=== PATIENT | female | born 1965 | race Two or more races ===

== ENCOUNTER 2017-06-06 10:02 | Outpatient (CLI) | payer OTHER | END 2017-06-06 10:16 | disposition home or self-care (01) | LOC: MRI 10:02 | DX: M25.561 Pain in right knee (principal); M23.91 Unspecified internal derangement of right knee | CPT/HCPCS: 73721 ==

== ENCOUNTER 2017-06-06 10:46 | Outpatient (CLI) | payer OTHER | END 2017-06-06 16:35 | disposition home or self-care (01) | LOC: SONOGRAMA 10:46 | DX: M79.661 Pain in right lower leg (principal) ==

== ENCOUNTER → 2017-06-06 | Outpatient (CLI) | payer OTHER | END | disposition home or self-care (01) | LOC: LAB 07:58 | DX: E88.89 Other specified metabolic disorders (principal); E55.9 Vitamin D deficiency, unspecified; M85.89 Other specified disorders of bone density and structure, multiple sites; E21.2 Other hyperparathyroidism; M81.8 Other osteoporosis without current pathological fracture; E56.1 Deficiency of vitamin K; E83.39 Other disorders of phosphorus metabolism; E83.42 Hypomagnesemia ==

== ENCOUNTER 2017-09-12 12:38 | Outpatient (CLI) | payer OTHER | END 2017-09-12 12:40 | disposition home or self-care (01) | LOC: LAB 12:38 | DX: N30.00 Acute cystitis without hematuria (principal) ==

== ENCOUNTER 2017-09-12 13:45 | Outpatient (CLI) | payer OTHER | END 2017-09-12 17:00 | disposition home or self-care (01) | LOC: TOM 13:45 | DX: R31.0 Gross hematuria (principal) ==

== ENCOUNTER 2019-10-13 11:12 | Outpatient (CLI) | payer OTHER | END 2019-10-13 11:13 | disposition home or self-care (01) | LOC: RAD 11:12 | PROVIDERS: ATTEND Orthopaedic Surgery | DX: M79.671 Pain in right foot (principal) ==

== ENCOUNTER 2019-10-25 10:57 | Outpatient (CLI) | payer OTHER | END 2019-10-25 11:11 | disposition home or self-care (01) | LOC: NUCLEAR 10:57 | PROVIDERS: ATTEND Orthopaedic Surgery | DX: M81.0 Age-related osteoporosis without current pathological fracture (principal); I87.2 Venous insufficiency (chronic) (peripheral) ==

== ENCOUNTER → 2019-11-08 10:08 | Outpatient (CLI) | payer OTHER | END | disposition home or self-care (01) | LOC: LAB 10:08 | PROVIDERS: ATTEND Orthopaedic Surgery | DX: E21.2 Other hyperparathyroidism (principal); E88.89 Other specified metabolic disorders; M85.88 Other specified disorders of bone density and structure, other site; M81.8 Other osteoporosis without current pathological fracture; E55.9 Vitamin D deficiency, unspecified; E56.1 Deficiency of vitamin K ==

== ENCOUNTER 2021-01-19 10:40 | Outpatient (CLI) | payer OTHER | END 2021-01-19 10:55 | disposition home or self-care (01) | LOC: PPH VACUNA 10:40 | PROVIDERS: ATTEND Emergency Medicine Pediatric Emergency Medicine | DX: Z23 Encounter for immunization (principal) ==

== ENCOUNTER → 2022-07-18 | Outpatient (CLI) | payer OTHER | END | disposition home or self-care (01) | LOC: NUCLEAR 08:00 | PROVIDERS: ATTEND Internal Medicine Cardiovascular Disease | DX: R07.9 Chest pain, unspecified (principal) ==

== ENCOUNTER 2025-03-07 08:24 | Outpatient (CLI) | payer OTHER | END 2025-03-07 08:38 | disposition home or self-care (01) | LOC: SONOGRAMA 08:24 | PROVIDERS: ATTEND Internal Medicine Gastroenterology | DX: R16.0 Hepatomegaly, not elsewhere classified (principal); K76.0 Fatty (change of) liver, not elsewhere classified ==

== ENCOUNTER 2025-03-14 07:26 | Outpatient (CLI) | payer OTHER | END 2025-03-14 07:28 | disposition home or self-care (01) | LOC: NUCLEAR 07:26 | PROVIDERS: ATTEND Internal Medicine Hematology & Oncology | DX: I70.212 Atherosclerosis of native arteries of extremities with intermittent claudication, left leg (principal); I70.211 Atherosclerosis of native arteries of extremities with intermittent claudication, right leg ==